=== PATIENT | male | born 1940 | race Caucasian/White ===

== ENCOUNTER → 2021-01-17 | Outpatient (CLI) | payer MEDICARE ==
[~2021-01-17] VITALS: Ht 177.8 cm; Wt 106.1 kg
[~2021-01-17] MED LIST: APIX5TAB PO; FURO40TA5 PO; HYDR-4068 PO; LEVO150C4 PO; REGADENOSON 0.4 MG/5 ML PF SYG IVP SCH; SERT-439 PO
== END | disposition home or self-care (01) ==
LOC: SHCH 09:29
PROVIDERS: ATTEND Internal Medicine Cardiovascular Disease
DX: Z01.818 Encounter for other preprocedural examination (principal); I25.9 Chronic ischemic heart disease, unspecified
CPT/HCPCS: 78452; 93017; A9500 ×2; J2785; 96374

== ENCOUNTER 2021-02-24 06:04 | Observation (INO) | payer MEDICARE ==
[2021-02-23 15:44] LABS: BASOPHILS % (AUTO) 0.6 % (0.0-5.0); LYMPHOCYTES % (AUTO) 33.5 % (21.0-51.0); MEAN CORPUSCULAR HEMOGLOBIN 32.1 pg (27.0-33.0); MEAN CORPUSCULAR HGB CONC 32.9 g/dL (32.0-36.0); MEAN CORPUSCULAR VOLUME 97.6 fL (79-99); MONOCYTES % (AUTO) 12.5 % (3.0-13.0); NEUTROPHILS % (AUTO) 49.2 % (40.0-77.0); PLATELET COUNT (AUTO) 176 K/uL (130-400); RED CELL DISTRIBUTION WIDTH 14.4 % (11.0-15.5); WHITE BLOOD COUNT (AUTO) 8.3 K/uL (4.8-10.8)
[2021-02-23 15:48] LABS: APPEARANCE,URINE CLEAR (CLEAR); BILIRUBIN,URINE NEGATIVE (NEGATIVE); COLOR,URINE YELLOW (YELLOW); GLUCOSE, URINE (UA) NEGATIVE (NEGATIVE); KETONES,URINE NEGATIVE (NEGATIVE); LEUKOCYTE ESTERASE ,URINE NEGATIVE (NEGATIVE); NITRATE,URINE NEGATIVE (NEGATIVE); OCCULT BLOOD,URINE NEGATIVE (NEGATIVE); PROTEIN,URINE NEGATIVE (NEGATIVE); UROBILINOGEN,URINE 0.2 mg/dL (0.2-1.0)
[2021-02-23 15:59] LABS: CREATININE 1.1 mg/dL (0.5-1.5)
[2021-02-23 16:02] LABS: INR 1.21 (0.85-1.15)
[2021-02-23 16:03] LABS: PARTIAL THROMBOPLASTIN TIME 29.6 SEC (26.3-35.5)
[2021-02-23 19:03] VITALS: BP 149/64
[~2021-02-24] VITALS: Ht 177.8 cm; Wt 108.3 kg
[2021-02-24] VITALS (11 sets, daily range): BP systolic 115–136; BP diastolic 44–86
[2021-02-24] MEDS ORDERED: APIX5TAB PO (07:33)
[2021-02-24] MEDS ORDERED: LEVO150C4 PO (07:33)
[2021-02-24] MEDS ORDERED: HYDR-4068 PO (07:33)
[2021-02-24] MEDS ORDERED: SERT-439 PO (07:33)
[2021-02-24] MEDS ORDERED: FURO40TA5 PO (07:33)
[2021-02-24] MEDS: 0.9%NACL 1000ML 1,000 ML IV SCH ×2 (07:34→14:42)
[2021-02-24] MEDS ORDERED: HEPARIN 10,000 UNIT/10ML (1,000 UNIT/ML) VIAL ONE (08:43)
[2021-02-24] MEDS ORDERED: NITROGLYCERIN 50MG VIAL IV ONE (08:43)
[2021-02-24] MEDS ORDERED: LIDOCAINE HCL 400MG/20ML VIAL ONE (08:43)
[2021-02-24] MEDS ORDERED: IOHEXOL-350 50ML VIAL IV ONE (08:43)
[2021-02-24] MEDS ORDERED: MIDAZOLAM HCL 1 MG/ML 2ML VIAL ONE (08:43)
[2021-02-24] MEDS ORDERED: IOHEXOL 350 MG/ML 100ML INFUS..BTL IV ONE ×2 (08:43→10:12)
[2021-02-24] MEDS ORDERED: FENTANYL CITRATE PF 50 MCG/1 ML 2ML VIAL ONE ×2 (08:52→10:14)
[2021-02-24] MEDS ORDERED: HYDRALAZINE 20MG/ML VIAL ONE (09:34)
[2021-02-24] MEDS ORDERED: BIVALIRUDIN 250 MG/VIAL IV ONE ×2 (09:45)
[2021-02-24] MEDS ORDERED: ASPIRIN 325MG EC TAB PO ONE ×2 (09:52→11:30)
[2021-02-24] MEDS ORDERED: CLOPIDOGREL 300MG TAB ONE ×2 (09:52→09:59)
[2021-02-24] MEDS ORDERED: ONDANSETRON 4MG INJ ONE (10:48)
[2021-02-24] MEDS ORDERED: 0.9%NACL 1000ML 1,000 ML IV SCH (11:00)
[2021-02-24] MEDS ORDERED: VANCOMYCIN KIT 1 GM/250 ML IV.KIT IV PRN (14:30)
[2021-02-24] MEDS ORDERED: 0.9% NACL 250ML 250 ML IV PRN (14:30)
[2021-02-24] MEDS ORDERED: VANCOMYCIN 1G 1 GM in 0.9% NACL 250ML 250 ML IV PRN (14:30)
[2021-02-24] MEDS: HYDROCODONE/ACETAMINOPHEN 10/325 MG TAB PO SCH ×2 (14:41→20:04)
[2021-02-24] MEDS: ATORVASTATIN 40 MG TABLET PO SCH (20:04)
[2021-02-25] VITALS (9 sets, daily range): BP systolic 102–161; BP diastolic 52–91
[2021-02-25] MEDS: LEVOTHYROXINE 150 MCG TABLET PO SCH (00:40)
[2021-02-25 04:57] LABS: HEMATOCRIT 36.8 % (42-54); MEAN CORPUSCULAR HEMOGLOBIN 31.9 pg (27.0-33.0); MEAN CORPUSCULAR HGB CONC 33.2 g/dL (32.0-36.0); MEAN CORPUSCULAR VOLUME 96.3 fL (79-99); RED BLOOD CELL COUNT(AUTO) 3.82 MIL/uL (4.50-6.20); RED CELL DISTRIBUTION WIDTH 14.6 % (11.0-15.5); WHITE BLOOD COUNT (AUTO) 6.7 K/uL (4.8-10.8)
[2021-02-25 05:08] LABS: CREATININE 1.1 mg/dL (0.5-1.5); POTASSIUM 4.2 mmol/L (3.5-5.1)
[2021-02-25] MEDS: HYDROCODONE/ACETAMINOPHEN 10/325 MG TAB PO SCH ×3 (05:35→21:14)
[2021-02-25] MEDS: CLOPIDOGREL 75MG TAB PO SCH (09:00)
[2021-02-25] MEDS: ASPIRIN 81MG CHEW TAB PO SCH (09:00)
[2021-02-25] MEDS ORDERED: APIXABAN 5 MG TABLET PO SCH (09:00)
[2021-02-25] MEDS: SERTRALINE HCL 50 MG TABLET PO SCH (09:13)
[2021-02-25] MEDS: PANTOPRAZOLE 40 MG TAB DR PO SCH (09:13)
[2021-02-25] MEDS: FUROSEMIDE 40 MG TABLET PO SCH (09:13)
[2021-02-25] MEDS ORDERED: BUPIVACAINE/PF 0.25% 30ML VIAL IJ ONE (14:05)
[2021-02-25] MEDS ORDERED: LIDOCAINE HCL 1% MDV 50ML VIAL ONE (14:06)
[2021-02-25] MEDS ORDERED: MEPERIDINE-PF 25 MG/ML SYG ONE ×3 (14:06→15:13)
[2021-02-25] MEDS ORDERED: MIDAZOLAM HCL 1 MG/ML 2ML VIAL ONE ×3 (14:06→15:13)
[2021-02-25] MEDS ORDERED: IODIXANOL 320 MG/ML 100 ML VIAL ONE (14:43)
[2021-02-25] MEDS ORDERED: ACETAMINOPHEN WITH CODEINE 1 TAB TAB PO PRN (16:30)
[2021-02-25] MEDS ORDERED: SENNOSIDES 8.6 MG TABLET PO PRN (21:00)
[2021-02-25] MEDS: ATORVASTATIN 40 MG TABLET PO SCH (21:15)
[2021-02-26] VITALS: BP 160/87
[2021-02-26] MEDS: HYDROCODONE/ACETAMINOPHEN 10/325 MG TAB PO SCH (03:51)
[2021-02-26 04:00] VITALS: BP 145/73
[2021-02-26] MEDS: LEVOTHYROXINE 150 MCG TABLET PO SCH (05:58)
[2021-02-26 08:00] VITALS: BP 142/62
[2021-02-26] MEDS: SERTRALINE HCL 50 MG TABLET PO SCH (08:14)
[2021-02-26] MEDS: FUROSEMIDE 40 MG TABLET PO SCH (08:14)
[2021-02-26] MEDS: ASPIRIN 81MG CHEW TAB PO SCH (08:14)
[2021-02-26] MEDS: PANTOPRAZOLE 40 MG TAB DR PO SCH (08:15)
[2021-02-26] MEDS: CLOPIDOGREL 75MG TAB PO SCH (08:15)
[2021-02-26 12:00] VITALS: BP 138/69
== END 2021-02-26 15:40 | disposition home or self-care (01) ==
LOC: DAH 06:04 → DAHIP 06:05 → DAH 10:55 → 4CH 11:53
PROVIDERS: ADMIT Internal Medicine; ATTEND Internal Medicine
DX: I25.119 Atherosclerotic heart disease of native coronary artery with unspecified angina pectoris (principal); I45.89 Other specified conduction disorders; I48.21 Permanent atrial fibrillation; I48.20 Chronic atrial fibrillation, unspecified; I34.0 Nonrheumatic mitral (valve) insufficiency; I42.9 Cardiomyopathy, unspecified; R94.39 Abnormal result of other cardiovascular function study; I25.84 Coronary atherosclerosis due to calcified coronary lesion; E03.9 Hypothyroidism, unspecified; D68.51 Activated protein C resistance; D68.59 Other primary thrombophilia; N18.30 Chronic kidney disease, stage 3 unspecified; I50.42 Chronic combined systolic (congestive) and diastolic (congestive) heart failure; N40.0 Benign prostatic hyperplasia without lower urinary tract symptoms; E66.01 Morbid (severe) obesity due to excess calories; F41.8 Other specified anxiety disorders; M51.16 Intervertebral disc disorders with radiculopathy, lumbar region; R20.2 Paresthesia of skin; N52.9 Male erectile dysfunction, unspecified; I45.10 Unspecified right bundle-branch block; Z68.33 Body mass index [BMI] 33.0-33.9, adult; Z95.5 Presence of coronary angioplasty implant and graft; Z95.0 Presence of cardiac pacemaker; Z96.651 Presence of right artificial knee joint; Z79.01 Long term (current) use of anticoagulants; Z79.899 Other long term (current) drug therapy
CPT/HCPCS: 33207; 33225; 36415 ×2; 71045 ×2; 75710; 80048 ×2; 80061; 81003; 85025; 85027; 85610; 85730; 93005; 93458; A4215; A4216; A4221; A4222; A4223 ×3; A4606; A4663; C1725; C1760; C1769 ×4; C1874; C1887; C1894 ×2; C1898; C1900; C2621; C9600; G0378 ×53; J0360; J0583 ×2; J1644 ×2; J2175 ×2; J2250 ×2; J2405; J3010 ×2; J3370 ×2; J3490 ×4; J7030; Q9965 ×2; Q9967 ×4; 99156; 99157

== ENCOUNTER 2021-03-04 19:21 | Emergency (ER) | payer MEDICARE ==
[~2021-03-04] VITALS: Ht 177.8 cm; Wt 104.3 kg
[~2021-03-04 19:21] MED LIST changes: -REGADENOSON 0.4 MG/5 ML PF SYG IVP SCH
[2021-03-04 20:33] LABS: BASOPHILS % (AUTO) 0.7 % (0.0-5.0); EOSINOPHILS % (AUTO) 1.8 % (0.0-8.0); HEMATOCRIT 38.5 % (42-54); LYMPHOCYTES % (AUTO) 14.4 % (21.0-51.0); MEAN CORPUSCULAR HGB CONC 34.3 g/dL (32.0-36.0); MEAN CORPUSCULAR VOLUME 93.4 fL (79-99); MONOCYTES % (AUTO) 11.3 % (3.0-13.0); NEUTROPHILS % (AUTO) 71.5 % (40.0-77.0); PLATELET COUNT (AUTO) 178 K/uL (130-400); RED BLOOD CELL COUNT(AUTO) 4.12 MIL/uL (4.50-6.20); RED CELL DISTRIBUTION WIDTH 13.4 % (11.0-15.5); WHITE BLOOD COUNT (AUTO) 7.1 K/uL (4.8-10.8)
[2021-03-04 20:34] LABS: APPEARANCE,URINE Clear (CLEAR); BILIRUBIN,URINE Small (NEGATIVE); COLOR,URINE Dark Yellow (YELLOW); GLUCOSE, URINE (UA) Negative (NEGATIVE); KETONES,URINE Negative (NEGATIVE); LEUKOCYTE ESTERASE ,URINE Trace (NEGATIVE); NITRATE,URINE Negative (NEGATIVE); OCCULT BLOOD,URINE Large (NEGATIVE); PH,URINE 7.5 (5.0-8.0); PROTEIN,URINE Negative (NEGATIVE)
[2021-03-04 20:42] LABS: BACTERIA,URINE Rare /HPF (None Seen)
[2021-03-04 20:43] LABS: SQUAMOUS EPITHELIAL CELL,UR Rare /HPF (0-2)
[2021-03-04 20:46] LABS: CREATININE 1.1 mg/dL (0.5-1.5); POTASSIUM 3.9 mmol/L (3.5-5.1)
[2021-03-04 20:47] LABS: INR 1.27 (0.85-1.15); PROTHROMBIN TIME 13.5 SEC (9.6-11.6)
[2021-03-04 20:48] LABS: PARTIAL THROMBOPLASTIN TIME 28.8 SEC (26.3-35.5)
[2021-03-04 20:50] LABS: ALBUMIN 3.3 g/dL (3.5-5.0); BILIRUBIN,TOTAL 1.1 mg/dL (0.2-1.0); TOTAL PROTEIN, SERUM 8.2 g/dL (6.0-8.3)
[2021-03-04 21:59] VITALS: BP 120/72
== END 2021-03-04 21:58 | disposition home or self-care (01) ==
LOC: EDH 19:21
DX: D68.9 Coagulation defect, unspecified (principal); E03.9 Hypothyroidism, unspecified; E78.00 Pure hypercholesterolemia, unspecified; I10 Essential (primary) hypertension; I25.10 Atherosclerotic heart disease of native coronary artery without angina pectoris; I48.91 Unspecified atrial fibrillation; Z79.01 Long term (current) use of anticoagulants; Z79.899 Other long term (current) drug therapy; Z95.0 Presence of cardiac pacemaker; Z95.5 Presence of coronary angioplasty implant and graft
CPT/HCPCS: 36415; 80053; 81001; 85025; 85610; 85730